=== PATIENT | male | born 1980 ===

== ENCOUNTER 2023-01-10 14:28 | Emergency (ER) | payer OTHER, SELFPAY ==
--- NOTE | ~2023-01-10 | US_ITS ---
EXAMINATION: US ABDOMEN LIMITED CLINICAL INFORMATION: Right upper quadrant pain. COMPARISON: None available. TECHNIQUE: Real-time imaging of the right upper quadrant abdominal viscera. FINDINGS: Per the ordering physician imaging of the gallbladder and common duct only Gallbladder wall is not thickened. No evidence for edema. There is echogenicity within consistent with sludge or echogenic bile. The common duct is 0.3 cm within normal limits. US/US abdomen limited IMPRESSION: Sludge and/or echogenic bile within the gallbladder. No evidence of gallbladder edema. The common duct is 3 mm
[2023-01-10 14:36] VITALS: BP 168/108; PULSE 67; RESP 18; TEMP 37.1; O2SAT 100; BMI 22.3
--- NOTE | 2023-01-10 14:37 | ED_ITS ---
HPI - General Adult General Chief complaint: Abdominal Pain Stated complaint: abd pain, vomiting Time Seen by Provider: 01/10/23 16:34 Source: patient Mode of arrival: ambulatory Limitations: no limitations History of Present Illness HPI narrative: 42 yold male presents with pmh of alcoholism ( cold turkey since may 2022) presents to the ED for 9 days of sharp/acid mid/epigastric abdominal pain for the past 9 days with decrease appetitte. Patient denies any chest pain, shortness of breath, symptoms, recent drinking, spicy food, or any recent trauma. patient denies any pmh surgical history or pancreatits. patient denies any drug use. Related Data Previous Rx's Medication Instructions Recorded famotidine 20 mg tablet (Pepcid) 20 mg PO BID 7 days #14 tabs 01/11/23 oxycodone 5 mg tablet 5 mg PO TID PRN pain 3 days #9 tabs 01/11/23 Allergies Allergy/AdvReac Type Severity Reaction Status Date / Time No Known Allergies Allergy Verified 01/10/23 14:35 Review of Systems Review of Systems: mid abdominal pain Yes all other systems are reviewed and are negative [facility] Social History Social History Advance Directives: No Advance Directives Information Provided: No Physical Exam ED Vital Signs: Vital Signs - 24 hr 01/10/23 14:36 01/10/23 19:19 01/10/23 21:17 Temperature 98.7 F Pulse Rate 67 64 70 Respiratory Rate 18 16 18 Blood Pressure 168/108 H 132/84 135/94 H Pulse Oximetry 100 97 99 Oxygen Delivery Method Room Air Room Air Room Air 01/10/23 21:32 Temperature Pulse Rate 66 Respiratory Rate 18 Blood Pressure 129/85 Pulse Oximetry 100 Oxygen Delivery Method Room Air BMI result Body Mass Index 22.3 Const General: cooperative, healthy appearing, comfortable, no acute distress, well developed, alert, awake and Physically active Orientation/consciousness: oriented to person, oriented to place, oriented to time and patient oriented x3 HENMT Head: Yes normal to inspection, Yes No palpable skull fracture present, Yes normocephalic, Yes atraumatic and No abrasion Eyes General: appearance normal, both eyes and all related structures Neck Neck: Yes normal visual inspection, Yes full ROM, Yes no lymphadenopathy, Yes no meningeal signs, Yes trachea midline, Yes supple, No anterior neck swelling and No tender Chest Chest palpation & inspection: normal inspection of the chest and normal palpation of entire chest wall Resp Effort & Inspection: normal respiratory effort and able to speak in complete sentences Auscultation: clear to auscultation bilaterally Cardio Jugular venous distension: no JVD Heart sounds: S1 normal heart sound present and S2 normal heart sound present GI Inspection: Yes normal to inspection and No abdominal wall ecchymosis Palpation (GI): Tenderness to palpation present (GI) (mid abdominal pain) in the epigastrum; not in the LLQ, not in the RLQ, not in the LUQ, not in the RUQ, not at McBurney's point, not periumbilically, not suprapubicly, Ireland's sign negative, obturator sign negative, psoas sign negative, with no rebound tenderness, Rovsing's sign negative and no other, no guarding and not rigid General: No CVA tenderness and Yes no CVA tenderness Back/Spine/Pelvis Back: no CVA tenderness, No CVA tenderness and No back tenderness Skin General skin exam: no rashes or lesions noted and elasticity normal Neuro General: oriented to person, oriented to place, oriented to time, patient oriented x3, gait normal, tone normal, moves all extremities, Normal light touch and pain sensation, no meningeal signs, no focal motor deficits, CN's II-XI intact bilaterally and normal sensation to monofilament Extrem General: Yes normal to inspection and Yes full ROM Psych Appearance: grossly normal, well kempt and not disheveled Course Course Course Narrative: 42 year old male p;resents for evaluation of upper abdominal pain, burning in nature. Denies any history of abdominal surgeries. Will check labs including liver enzymes and lipase. Reevaluation(s) Reevaluation #1: patient tender in mid/epigastric exam. Due to age will add EKG and troponin and GI cocktail. Will do imaging. Time: 17:05 Medications Administered Discontinued Medications Generic Name Dose Route Start Last Admin Trade Name Nory PRN Reason Stop Dose Admin Al Hydroxide/Mg Hydroxide 30 ml 01/10/23 16:56 01/10/23 17:23 Magnesium Hydrox/Alum Hydrox 30 Ml Oral.Susp PO 01/10/23 16:57 30 ml ONCE ONE Administration Belladonna Alkaloids/Phenobarbital 10 ml 01/10/23 16:56 01/10/23 17:23 Phenobarb/Hyoscy/Atropine/Scop 10 Ml Elixir PO 01/10/23 16:57 10 ml ONCE ONE Administration Famotidine 20 mg 01/10/23 16:56 01/10/23 17:23 Famotidine/Pf 20 Mg/2 Ml Vial IVPUSH 01/10/23 16:57 20 mg ONCE ONE Administration Sodium Chloride 1,000 mls @ 999 mls/hr 01/10/23 16:56 01/10/23 18:58 Ns IV 01/10/23 17:56 Infused .Q1H1M STA Infusion Lidocaine HCl 15 ml 01/10/23 16:56 01/10/23 17:23 Lidocaine Hcl Viscous 2 % 15 Ml Solution MUCOUS MEM 01/10/23 16:57 15 ml ONCE ONE Administration Morphine Sulfate 2 mg 01/10/23 21:22 01/10/23 21:29 Morphine Sulfate 2 Mg/Ml Cartridge IVPUSH 01/10/23 21:23 2 mg ONCE ONE Administration Protocol Medical Decision Making Medical Decision Making MDM Narrative: 42 yold male presents with epigastric/mid abdominal pain for 9 days with decrease appettie. patient states no fever, chills, lower abdominal pain,or weightloss. Labs normal. Cardiac evaliation normal. Patient givne GI cocktail. ULtrasound shows sludge in gallblader, biliary colic. No need for surgical con stulation. patietn to be discharge. Differential Diagnosis Differential Diagnoses: The differential diagnosis associated with the presenta tion includes (pancreatitis, cholecystitsis, biliary colic, mI, GERD, appendicitis, ) Admission/Observation Consideration of admission/observation: Escalation of care including admission/observation considered Lab Data [facility] Lab Attestation statement: I reviewed the patient's lab results. 01/10/23 14:52 01/10/23 14:52 Labs: Lab Results 01/10/23 01/10/23 01/10/23 Range/Units 14:52 14:52 17:18 WBC 11.7 H (4.8-10.8) X10*3/uL RBC 5.14 (4.60-5.80) X10*6/uL Hgb 15.9 (14.0-18.0) g/dl Hct 47.0 (42.0-52.0) % MCV 91.4 (80.0-98.0) fL MCH 30.9 (27.0-33.0) pg MCHC 33.8 (31.0-36.0) g/dl RDW 12.2 (11.0-16.0) % Plt Count 338 (160-400) X10*3/uL MPV 10.0 (9.4-12.4) fL Immature Gran % (Auto) 0.3 (0.0-0.4) % Neut % (Auto) 78.5 H (45-73) % Lymph % (Auto) 15.8 L (20-40) % [place] % (Auto) 4.7 (2-11) % Eos % (Auto) 0.1 (0-4) % Baso % (Auto) 0.6 (0-2) % Lymph # (Auto) 1.9 (1.2-4.9) X10*3/uL [place] # (Auto) 0.6 (0.1-1.2) X10*3/uL Eos # (Auto) 0.0 (0.0-0.4) X10*3/uL Baso # (Auto) 0.1 (0.0-0.2) X10*3/uL Abs Immat Gran (auto) 0.03 (0.00-0.03) X10*3/uL Absolute Neuts (auto) 9.2 H (2.0-8.3) x10*3/uL Absolute Nucleated RBC 0.000 (0.0-0.012) X10*3/uL Nucleated RBC % (auto) 0.0 (0.0-0.2) /100WBC PT 11.7 (10.0-13.1) SEC INR 1.0 (0.9-1.1) APTT 28.7 (26.0-36.4) SEC Sodium 139 (135-145) mmol/L Potassium 4.9 (3.3-5.1) mmol/L Chloride 104 (96-108) mmol/L Carbon Dioxide 27 (22-29) mmol/L Anion Gap 13 (12-20) BUN 8 L (9-16) mg/dL Creatinine 0.97 (0.5-1.4) mg/dL Estim Creat Clear Calc 96.7 Estimated GFR > 60 Random Glucose 110 (60-115) mg/dL Calcium 10.1 (8.4-10.2) mg/dL Total Bilirubin 2.1 H (0.0-1.0) mg/dL AST 18 (5-37) U/L ALT 19 (0-40) U/L Alkaline Phosphatase 78 (39-117) U/L Troponin I High Sens (<3.5-35.0) ng/L Total Protein 7.3 (6.5-8.0) g/dL Albumin 4.5 (3.5-5.0) g/dL Lipase 22 (8-78) U/L 01/10/23 Range/Units 17:18 WBC (4.8-10.8) X10*3/uL RBC (4.60-5.80) X10*6/uL Hgb (14.0-18.0) g/dl Hct (42.0-52.0) % MCV (80.0-98.0) fL MCH (27.0-33.0) pg MCHC (31.0-36.0) g/dl RDW (11.0-16.0) % Plt Count (160-400) X10*3/uL MPV (9.4-12.4) fL Immature Gran % (Auto) (0.0-0.4) % Neut % (Auto) (45-73) % Lymph % (Auto) (20-40) % [place] % (Auto) (2-11) % Eos % (Auto) (0-4) % Baso % (Auto) (0-2) % Lymph # (Auto) (1.2-4.9) X10*3/uL [place] # (Auto) (0.1-1.2) X10*3/uL Eos # (Auto) (0.0-0.4) X10*3/uL Baso # (Auto) (0.0-0.2) X10*3/uL Abs Immat Gran (auto) (0.00-0.03) X10*3/uL Absolute Neuts (auto) (2.0-8.3) x10*3/uL Absolute Nucleated RBC (0.0-0.012) X10*3/uL Nucleated RBC % (auto) (0.0-0.2) /100WBC PT (10.0-13.1) SEC INR (0.9-1.1) APTT (26.0-36.4) SEC Sodium (135-145) mmol/L Potassium (3.3-5.1) mmol/L Chloride (96-108) mmol/L Carbon Dioxide (22-29) mmol/L Anion Gap (12-20) BUN (9-16) mg/dL Creatinine (0.5-1.4) mg/dL Estim Creat Clear Calc Estimated GFR Random Glucose (60-115) mg/dL Calcium (8.4-10.2) mg/dL Total Bilirubin (0.0-1.0) mg/dL AST (5-37) U/L ALT (0-40) U/L Alkaline Phosphatase (39-117) U/L Troponin I High Sens < 2.7 (<3.5-35.0) ng/L Total Protein (6.5-8.0) g/dL Albumin (3.5-5.0) g/dL Lipase (8-78) U/L Independent Interpretation I performed an independent interpretation of an: Ultrasound Radiology Impression Discussion of test interpretation with radiology: I have reviewed the radiologist's reading. Prescription Management I considered prescription management with: Pain Medication and Other (pepcid) Discharge Plan Discharge Clinical Impression: Biliary colic, Gastroesophageal reflux disease, Sludge in gallbladder Patient Disposition: Home, Self-Care Instructions: Biliary Colic (ED), Gastroesophageal Reflux Disease (ED) Additional Instructions: REturn to the ED for any concerning symptoms. Prescriptions: New famotidine [Pepcid] 20 mg tablet 20 mg PO BID 7 Days Qty: 14 0RF oxycodone 5 mg tablet 5 mg PO TID PRN (Reason: pain) 3 Days Qty: 9 0RF Rx Instructions: Partial Fill upon patient request. Referrals: [facility] [Provider Group] (Sludge in gall bladder) [facility] [Provider Group] (sludge in gall bladder) Stand Alone Forms: Work/School Release Interventions: ED Discharge Assessment Last Done: 01/10/23 21:40 Discharge Date/Time: 01/10/23 21:40 Print Language: Samoan
[2023-01-10 14:56] LABS: MANUAL DIFF FLAG NO
[2023-01-10 14:58] LABS: Basophils Absolute Auto 0.1 X10*3/uL (0.0-0.2); Basophils Percent Auto 0.6 % (0-2); Eosinophils Percent Auto 0.1 % (0-4); Hemoglobin 15.9 g/dl (14.0-18.0); Imm Gran Abs Auto 0.03 X10*3/uL (0.00-0.03); Imm Gran Pct Auto 0.3 % (0.0-0.4); Lymphocytes Absolute Auto 1.9 X10*3/uL (1.2-4.9); Lymphocytes Percent Auto 15.8 % (20-40); Mean Corpuscular HGB Conc 33.8 g/dl (31.0-36.0); Mean Corpuscular Hemoglobin 30.9 pg (27.0-33.0); Mean Corpuscular Volume 91.4 fL (80.0-98.0); Monocytes Absolute Auto 0.6 X10*3/uL (0.1-1.2); Monocytes Percent Auto 4.7 % (2-11); Neutrophils Absolute Auto 9.2 x10*3/uL (2.0-8.3); Neutrophils Percent Auto 78.5 % (45-73); Platelet Count 338 X10*3/uL (160-400); Red Blood Count 5.14 X10*6/uL (4.60-5.80); Red Cell Distribution Width 12.2 % (11.0-16.0); White Blood Count 11.7 X10*3/uL (4.8-10.8)
[2023-01-10 15:16] LABS: Alanine Aminotransferase 19 U/L (0-40); Albumin Level 4.5 g/dL (3.5-5.0); Alkaline Phosphatase 78 U/L (39-117); Anion Gap 13 (12-20); Aspartate Amino Transferase 18 U/L (5-37); Bilirubin Total 2.1 mg/dL (0.0-1.0); Blood Urea Nitrogen 8 mg/dL (9-16); Calcium 10.1 mg/dL (8.4-10.2); Carbon Dioxide 27 mmol/L (22-29); Chloride 104 mmol/L (96-108); Creatinine Clr Calc Pharmacy 96.7; Estimated Glomerular Filt Rate > 60; Glucose Random 110 mg/dL (60-115); Lipase 22 U/L (8-78); Potassium 4.9 mmol/L (3.3-5.1); Sodium 139 mmol/L (135-145); Total Protein 7.3 g/dL (6.5-8.0)
--- NOTE | 2023-01-10 16:56 | ECG_ITS ---
Test Reason : ABDOMINAL PAIN Blood Pressure : / mmHG Vent. Rate : 064 BPM Atrial Rate : 064 BPM P-R Int : 112 ms QRS Dur : 072 ms QT Int : 424 ms P-R-T Axes : 055 080 070 degrees QTc Int : 437 ms Normal sinus rhythm Normal ECG No previous ECGs available Referred By: Ulisses Harris Electronically Signed By:Dakota Stanton
[2023-01-10] MEDS: Lidocaine HCl Viscous 2 % 15 ML SOLUTION MUCOUS MEM (17:23)
[2023-01-10] MEDS: Famotidine/PF 20 MG/2 ML VIAL IVPUSH (17:23)
[2023-01-10] MEDS: Magnesium Hydrox/Alum Hydrox 30 ML ORAL.SUSP PO (17:23)
[2023-01-10] MEDS: PHENobarb/Hyoscy/Atropine/Scop 10 ML ELIXIR PO (17:23)
[2023-01-10] MEDS: 0.9 % Sodium Chloride 1,000 ML 999 ML IV (17:24)
[2023-01-10 17:30] LABS: Prothrombin Time 11.7 SEC (10.0-13.1)
[2023-01-10 17:33] LABS: Partial Thromboplastin Time 28.7 SEC (26.0-36.4)
[2023-01-10 17:54] LABS: Troponin-I High Sensitivity < 2.7 ng/L (<3.5-35.0)
[2023-01-10 19:19] VITALS: BP 132/84; PULSE 64; RESP 16; O2SAT 97
[2023-01-10 21:17] VITALS: BP 135/94; PULSE 70; RESP 18; O2SAT 99
[2023-01-10] MEDS: Morphine Sulfate 2 MG/ML CARTRIDGE IVPUSH (21:29)
[2023-01-10 21:32] VITALS: BP 129/85; PULSE 66; RESP 18; O2SAT 100
== END 2023-01-10 21:40 | disposition home or self-care (01) ==
PROVIDERS: Physician Assistant; Emergency Provider Internal Medicine
DX: K80.50 Calculus of bile duct without cholangitis or cholecystitis without obstruction (principal); K21.9 Gastro-esophageal reflux disease without esophagitis; K82.8 Other specified diseases of gallbladder; R10.13 Epigastric pain
CPT/HCPCS: 36415; 76705; 80053; 83690; 84484; 85025; 85610; 85730; 93005; 96361; 96374; 96375; 99284; J2270

== ENCOUNTER 2023-04-26 08:35 | Outpatient (AMB) | payer OTHER, SELFPAY ==
--- NOTE | 2023-04-26 08:44 | A.OFFPC_ITS ---
Vital Signs 04/26/23 08:46 Height 5 ft 7 in Weight 155 lb 4 oz BMI 24.3 BP 110/64 Blood Pressure Location Lt brachial Position Sitting Pulse 84 Pulse Source Pulse Oximeter Pulse Oximetry (%) 97 Oxygen Delivery Method Room Air Intake Visit Reasons: New patient-Gastric issues Intake Note: Patient is a new patient here to establish care for GI issues, history of kidney stone, possible inguinal hernia?. Transferring care from Unknown. Medical records have not been requested and have not received. Community Health Advocate Required: No Results Technician: Present Accompanied by: Spouse Allergies No Known Allergies Allergy (Verified 04/26/23 09:05) Medication List - Last Reconciled 04/26/23 by JENNIFER Farrell No Known Home Meds Tobacco use date assessed: 04/26/23 Dental Screening Dental Screen Date: 04/26/23 Did you have a dental visit in the last 12 months?: No Did you have a dental problem in the last 6 months where you did not have access to dental care?: No Was dental information given to patient?: No HPI HPI Comments History of Present Illness Details 42-year-old male [facility]. Denies significant past medical history. Review of the notes patient was seen in the emergency room in January for abdominal pain abdominal ultrasound showed a gallbladder sludge no surgical consult was required at that time patient was d/c on famotidine. Patient reports that he'll get mid epigastric pain that comes and goes and he is unable to eat at that time.Patient states when it occurs he is not able to eat for days Last happened 1 month ago. Patient currently denies any abdominal pain at this time. Denies any dyspepsia, nausea vomiting. PHQ-9 and plamira 7 positive. Denies SI/HI. [facility] is requesting referral for counseling [facility] Medical History (Updated 04/26/23 @ 09:32 by JENNIFER Farrell) Biliary colic Surgical History No pertinent past surgical history Family History (Updated 04/26/23 @ 09:07 by JENNIFER Farrell) Mother MVA (motor vehicle accident) Father Gastric cancer Alcohol abuse Other Mental health disorder Social History (Updated 04/26/23 @ 09:08 by JENNIFER Farrell) Housing: Apartment Alcohol intake: former Year quit: 2021 Patient Tobacco Use Status: Current everyday Tobacco user Tobacco use type: Cigarette Cigarette Packs Per Day: 0.75 Cigarettes Per Day: 15 e-Cigarette/Vaping Use: Never Used Second Hand Smoke Exposure: Yes Substance Use Type: Marijuana service: No Current occupational status: employed Current occupation: [employer] Cognitive needs: No Hearing needs: No Vision needs: No Questionnaire PHQ-9 Over the last 2 weeks, how often have you been bothered by any of the following problems? 1. Little interest or pleasure in doing things: several days 2. Feeling down, depressed, or hopeless: several days 3. Trouble falling or staying asleep, or sleeping too much: nearly every day 4. Feeling tired or having little energy: several days 5. Poor appetite or overeating: nearly every day 6. Feeling bad about yourself - or that you are a failure or have let yourself or your family down: not at all 7. Trouble concentrating on things, such as reading the newspaper or watching television: not at all 8. Moving or speaking so slowly that other people could have noticed. Or the opposite - being so fidgety or restless that you have been moving around a lot more than usual: not at all 9. Thoughts that you would be better off or of hurting yourself in some way: not at all Total score: 9 Depression Screening Interpretation: Positive 86803 - PHQ-9 Billing: Yes Source: Developed by Drs. Rajan Mcintyre, Kesha Conner, Joselo Medina and colleagues, with an educational brittany from [employer]. Thrive Questionnaire Date Thrive assessed: 04/26/23 I am a: Patient What is your living situation today?: I have a steady place to live Within the past 12 months, did the food you bought not last and you didn't have the money to get more?: Never true Within the past 12 months, did you worry whether your food would run out before you got money to buy more?: Never true Do you have trouble paying for medicines?: No Do you have trouble getting transportation to medical appointments?: No Do you have trouble paying your heating and electricity bill?: No Do you have trouble taking care of your child, family member or friend?: No Do you have trouble with day-to-day activities such as bathing, preparing meals, shopping, managing finances, etc.?: No Are you currently unemployed and looking for a job?: No Are you interested in more education?: No Currently or been in a relationship where the following occur: no concerns reported AUDIT C Alcohol Use Questionnaire (AUDIT-C) 1. How often do you have a drink containing alcohol?: Never Total Score: 0 PALMIRA-7 AMB Questionnaire PALMIRA-7 Date PALMIRA - 7 assessed: 04/26/23 Feeling nervous, anxious, or on edge: 3 = Nearly every day Not being able to stop or control worryin = Several days Worrying too much about different things: 1 = Several days Trouble relaxin = Nearly every day Being so restless that it is hard to sit still: 3 = Nearly every day Becoming easily annoyed or irritable: 1 = Several days Feeling afraid as if something awful might happen: 1 = Several days Total PALMIRA-7 score (0-4 normal; 5-9 mild; 10-14 moderate; 15-21 severe): 13 Source: Developed by Drs. Rajan Mcintyre, Kesha Conner, Joselo Medina and colleagues, with an educational brittany from [employer]. PALMIRA-7 Assessment Billing PALMIRA-7 Assessment Tool: PALMIRA-7 Assessment 56326 Review of Systems Const Denies chills, Denies fatigue, Denies fever(s) and Denies poor appetite Eyes Denies no additional complaints ENT Reports Normal hearing present Card Denies chest pain, Denies syncope, Denies rapid heart rate and Denies dyspnea Resp Denies cough and Denies dyspnea GI Denies change in stool character, Denies constipation, Denies diarrhea, Denies nausea and Denies vomiting Denies dysuria, Denies urinary frequency and Denies urinary urgency Neuro Reports Normal hearing present, Denies confusion and Denies syncope Psych Denies confusion Endo Denies fatigue Physical exam (Primary Care) Vital Signs: Last Vital Signs Pulse 84 04/26/23 08:46 BP 110/64 04/26/23 08:46 Pulse Ox 97 04/26/23 08:46 Oxygen Delivery Method Room Air 04/26/23 08:46 BMI result Body Mass Index 24.3 Tobacco/Smoking Status: Tobacco use Status Tobacco use date assessed 04/26/23 04/26/23 09:00 Patient Tobacco Use Status Current everyday Tobacco 04/26/23 09:08 Tobacco use type Cigarette 04/26/23 09:08 e-Cigarette/Vaping Use Never Used 04/26/23 09:08 PHQ-9: PHQ-9 Score PHQ-9: Total score 9 04/26/23 09:09 Depression Screening Interpretation: Positive Thrive Assessment: Date of Thrive Assessment Date Thrive assessed 04/26/23 04/26/23 09:00 Currently or been in a relationship where the following occur: no concerns reported Const General: No confusion Orientation/consciousness: No confusion HENMT Head: Yes normocephalic and Yes atraumatic Eyes Conjunctivae: conjunctivae normal Chest Chest palpation & inspection: normal inspection of the chest Resp Effort & Inspection: normal respiratory effort Auscultation: clear to auscultation bilaterally, no crackles, no rhonchi and no wheezes Cardio Rate: regular rate Rhythm: regular rhythm Heart sounds: S1 normal heart sound present and S2 normal heart sound present GI Inspection: Yes normal to inspection Palpation (GI): Soft to palpation, nontender and No hepatosplenomegaly present Auscultation: normoactive bowel sounds Neuro General: No confusion Cranial nerves: Yes Normal hearing present Extrem General: No edema Assessment and Plan Assessment & Plan (1) Biliary colic: Code(s): K80.50 - Calculus of bile duct without cholangitis or cholecystitis without obstruction Plan: Referral entered to general surgery for further evaluation. (2) Depression: Code(s): F32.A - Depression, unspecified Plan: Referral entered counseling. (3) Anxiety: Code(s): F41.9 - Anxiety disorder, unspecified Plan: Referral entered counseling. Plan Follow-up in 3 months for physical exam. Orders: Orders Complete Blood Count Auto Diff Today Z13.0 - Encounter for screening for diseases of the blood and blood-forming organs and certain disorders involving the immune mechanism TSH reflex Free T4 Today Z13.29 - Encounter for screening for other suspected endocrine disorder Amylase Today K80.50 - Calculus of bile duct without cholangitis or cholecystitis without obstruction Comprehensive Met. Panel Today K80.50 - Calculus of bile duct without cholangit is or cholecystitis without obstruction Lipid Panel Today Z13.220 - Encounter for screening for lipoid disorders Lipase Today K80.50 - Calculus of bile duct without cholangitis or cholecystitis without obstruction Referrals Counseling Referral F32.A - Depression, unspecified, F41.9 - Anxiety disorder, unspecified General Surgery Referral K80.50 - Calculus of bile duct without cholangitis or cholecystitis without obstruction Coding Level of Care Code New Pt Level 3 (76614) Diagnoses Biliary colic K80.50 Depression F32.A Anxiety F41.9 Additional Codes PALMIRA-7 Assessment Billing - PALMIRA-7 Assessment Tool: PALMIRA-7 Assessment 33181 ([id number])
[2023-04-26 08:46] VITALS: BP 110/64; PULSE 84; O2SAT 97; BMI 24.3
== END 2023-04-26 09:23 | disposition home or self-care (01) ==
PROVIDERS: PCP Nurse Practitioner Family; Visit Provider Nurse Practitioner Family
DX: K80.50 Calculus of bile duct without cholangitis or cholecystitis without obstruction (principal); F32.A Depression, unspecified; F41.9 Anxiety disorder, unspecified
CPT/HCPCS: 99203

== ENCOUNTER 2023-05-09 14:24 | Outpatient (AMB) | payer OTHER, SELFPAY ==
--- NOTE | 2023-05-09 14:47 | A.OFFVIS_ITS ---
Intake Vital Signs 05/09/23 14:51 Height 5 ft 7 in Weight 156 lb BMI 24.4 BP 119/67 Blood Pressure Location Rt brachial Position Standing Pulse 70 Intake Visit Reasons: Calculus of bile Intake Note: Patient referred for calculus of bile. Has been experiencing pain on and off for 8-9m. Last episode 1 month ago. C/o severe pain, vomiting, diarrhea. reports vomiting even water. Currently taking ibuprofen as needed. 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 He says that he has had this for about 8 months now. He says that this is normally on the left upper quadrant but would radiate to the periumbilical area. He says that sometimes it would last for 5 days. He has had poor oral intake as well periodically. He says that he would feel nauseous and would have vomiting even with intake of water frequently. His says that he may have lost almost 30 lb in the past year because of this He went to the ER last January, and had an ultrasound showing sludge or echogenic bile without stones. [facility] Medical History Chronic abdominal pain Biliary colic Surgical History No pertinent past surgical history Family History Mother MVA (motor vehicle accident) Father Gastric cancer Alcohol abuse Other Mental health disorder Social History Housing: Apartment Alcohol intake: former Year quit: 2022 Patient Tobacco Use Status: Current everyday Tobacco user Tobacco use type: Cigarette Cigarette Packs Per Day: 0.75 Cigarettes Per Day: 15 e-Cigarette/Vaping Use: Never Used Second Hand Smoke Exposure: Yes Substance Use Type: Marijuana service: No Current occupational status: employed 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 Cognitive needs: No Hearing needs: No Vision needs: No Review of Systems Const Denies chills, Denies fever(s) and Reports weight loss Card Denies chest pain, Denies dyspnea and Denies dyspnea on exertion Resp Denies cough, Denies dyspnea and Denies dyspnea on exertion GI Denies hematochezia, Denies change in bowel habits, Reports nausea and Reports vomiting Denies hematuria and Denies difficulty urinating Musc Denies back pain and Denies limited range of motion Neuro Denies focal weakness and Denies convulsions Psych Denies depression and Denies mood swings Physical Exam Vital Signs: Last Vital Signs Pulse 70 05/09/23 14:51 BP 119/67 05/09/23 14:51 BMI result Body Mass Index 24.4 Const General: comfortable and no acute distress Orientation/consciousness: patient oriented x3 Neck Neck: Yes no lymphadenopathy Resp Auscultation: clear to auscultation bilaterally Cardio Rhythm: regular rhythm GI Other: No tenderness right now, no Ireland's sign Palpation (GI): Soft to palpation, nontender and no guarding Neuro General: patient oriented x3 Assessment & Plan Assessment & Plan (1) Chronic abdominal pain: Code(s): R10.9 - Unspecified abdominal pain; G89.29 - Other chronic pain Plan: He has had chronic abdominal pain along with nausea or vomiting for almost a year now. He describes this mostly on the left upper quadrant and radiating to the periumbilical area. He had an ultrasound last January showing sludge and echogenic bile. His symptoms are not typical for a gallbladder etiology I am going to schedule him for a CT scan of the abdomen pelvis. He may need to have an endoscopy down the line. I will see him back in the office to discuss the CT scan findings. Orders: Orders CT abdomen pelvis w IV con 05/09/23 R10.9 - Unspecified abdominal pain, G89.29 - Other chronic pain Coding Level of Care Code New Pt Level 3 (91200) Diagnoses Chronic abdominal pain R10.9; G89.29
[2023-05-09 14:51] VITALS: BP 119/67; PULSE 70; BMI 24.4
== END 2023-05-09 15:10 | disposition home or self-care (01) ==
PROVIDERS: PCP Nurse Practitioner Family; Referring Provider Nurse Practitioner Family; Visit Provider Surgery
DX: R10.9 Unspecified abdominal pain (principal); G89.29 Other chronic pain
CPT/HCPCS: 99203

== ENCOUNTER → 2023-05-09 14:24 | Outpatient (BNVA) | payer OTHER, SELFPAY | PROVIDERS: PCP Nurse Practitioner Family; Referring Provider Nurse Practitioner Family; Visit Provider Surgery ==

== ENCOUNTER 2023-06-06 07:58 | Outpatient (REF) | payer OTHER, SELFPAY ==
[2023-06-06 08:14] LABS: MANUAL DIFF FLAG NO
[2023-06-06 08:49] LABS: Basophils Absolute Auto 0.1 X10*3/uL (0.0-0.2); Basophils Percent Auto 0.9 % (0-2); Eosinophils Absolute Auto 0.2 X10*3/uL (0.0-0.4); Eosinophils Percent Auto 2.4 % (0-4); Hemoglobin 15.8 g/dl (14.0-18.0); Imm Gran Abs Auto 0.03 X10*3/uL (0.00-0.03); Imm Gran Pct Auto 0.3 % (0.0-0.4); Lymphocytes Absolute Auto 2.5 X10*3/uL (1.2-4.9); Mean Corpuscular HGB Conc 33.6 g/dl (31.0-36.0); Mean Corpuscular Hemoglobin 30.3 pg (27.0-33.0); Mean Corpuscular Volume 90.2 fL (80.0-98.0); Monocytes Absolute Auto 0.5 X10*3/uL (0.1-1.2); Monocytes Percent Auto 5.4 % (2-11); Platelet Count 324 X10*3/uL (160-400); Red Blood Count 5.21 X10*6/uL (4.60-5.80); Red Cell Distribution Width 13.2 % (11.0-16.0); White Blood Count 9.4 X10*3/uL (4.8-10.8)
[2023-06-06 09:30] LABS: Alanine Aminotransferase 29 U/L (0-40); Albumin Level 4.5 g/dL (3.5-5.0); Alkaline Phosphatase 68 U/L (39-117); Amylase 107 U/L (28-100); Anion Gap 12 (12-20); Aspartate Amino Transferase 23 U/L (5-37); Bilirubin Total 1.9 mg/dL (0.0-1.0); Blood Urea Nitrogen 13 mg/dL (9-16); Calcium 9.7 mg/dL (8.4-10.2); Carbon Dioxide 25 mmol/L (22-29); Chloride 107 mmol/L (96-108); Cholesterol 228 mg/dL (<200); Estimated Glomerular Filt Rate > 60; Glucose Random 94 mg/dL (60-115); HDL Cholesterol 50 mg/dL (>40); LDL Cholesterol Calculated 162 mg/dL (<100); Lipase 17 U/L (8-78); Potassium 4.4 mmol/L (3.3-5.1); Sodium 140 mmol/L (135-145); Total Protein 7.4 g/dL (6.5-8.0); Triglycerides 81 mg/dL (<150)
== END 2023-06-06 07:59 | disposition home or self-care (01) ==
LOC: HO.LAB 07:58
PROVIDERS: PCP Nurse Practitioner Family; Visit Provider Nurse Practitioner Family
DX: Z13.220 Encounter for screening for lipoid disorders (principal); Z13.0 Encounter for screening for diseases of the blood and blood-forming organs and certain disorders involving the immune mechanism; Z13.29 Encounter for screening for other suspected endocrine disorder; K80.50 Calculus of bile duct without cholangitis or cholecystitis without obstruction
CPT/HCPCS: 36415; 80053; 80061; 82150; 83690; 84443; 85025

== ENCOUNTER 2023-06-13 07:30 | Outpatient (REF) | payer OTHER, SELFPAY ==
--- NOTE | ~2023-06-13 | CT_ITS ---
EXAMINATION: CT ABDOMEN AND PELVIS WITH CONTRAST CLINICAL INFORMATION: Abdominal pain COMPARISON: None available. TECHNIQUE: Multidetector volumetric images were obtained from the superior aspect of the liver through the pubic symphysis following administration 85 mL of Omnipaque 350 intravenous contrast. Sagittal and coronal reformatted images were obtained on the technologist's workstation. Oral contrast: No This CT examination was performed using dose optimization techniques as appropriate, variously including the following: *Automated exposure control *Adjustment of mA and/or kV according to patient size (this includes techniques or standardized protocols for targeted exams where dose is matched to indication/reason for exam; i.e. extremities or head) *Use of iterative reconstruction technique DLP: 246 mGy-cm FINDINGS: STAIN WIPER: Nonobstructive bowel pattern. L4-L5 and L5-S1 disc disease. LUNG BASES: The visualized lung bases are unremarkable. Nonenlarged heart. No pericardial effusion. LIVER, GALLBLADDER, AND BILIARY TREE: The liver is normal in size, shape, and attenuation. No focal hepatic lesion or biliary ductal dilatation is present. The gallbladder is unremarkable with no evidence of radiopaque gallstones, gallbladder wall thickening, or obvious pericholecystic inflammatory changes. PANCREAS: Unremarkable. SPLEEN: Unremarkable. ADRENAL GLANDS: Unremarkable. KIDNEYS AND URETERS: The kidneys are normal in size, shape, and attenuation. No hydronephrosis, hydroureter, or calculi seen. No perinephric stranding. BLADDER: Decompressed with wall thickening. GASTROINTESTINAL TRACT: Decompressed stomach, fundal wall thickening would be difficult to exclude. Nonobstructive bowel pattern. Appendix not identified with certainty. No right lower quadrant inflammatory changes. Sigmoid colon is decompressed. Moderate fecal retention. ABDOMINAL WALL: Small fat filled umbilical hernia. LYMPH NODES: Normal. VASCULAR: Unremarkable. PELVIC VISCERA: Prominent prostate with calcifications. Trace pelvic free fluid. OSSEOUS STRUCTURES: L4-L5 and L5-S1 spurring, sclerosis and disc space narrowing. CT/CT abdomen pelvis w IV con IMPRESSION: Small amount of free pelvic fluid of indeterminate etiology and significance. No intra-abdominal or pelvic pathology recognized. Study limited by lack of oral contrast. Decompressed stomach, gastric wall thickening not excluded. Moderate fecal retention. Fleischner guidelines were followed.
[2023-06-13] MEDS: iohexoL 350 MG/ML 100 ML INFUS..BTL IV (08:10)
== END 2023-06-13 07:31 | disposition home or self-care (01) ==
LOC: HO.CT 07:30
PROVIDERS: PCP Nurse Practitioner Family; Visit Provider Surgery
DX: R10.9 Unspecified abdominal pain (principal); G89.29 Other chronic pain
CPT/HCPCS: 74177; Q9967

== ENCOUNTER 2023-06-20 13:53 | Outpatient (AMB) | payer OTHER, SELFPAY ==
--- NOTE | 2023-06-20 13:57 | A.OFFVIS_ITS ---
Intake Intake Visit Reasons: Chronic abd pain, CT results Intake Note: This patient presents for a follow-up assessment for Ct-Scan results. Patient c/o; reports no changes at this time. Continuing Education Instructor Required: Yes Continuing Education Instructor Language: Kitchen Bath Designer Name: Mina Information Interpreted: non-clinical & clinical Accompanied by: Self / Same As Patient Allergies No Known Allergies Allergy (Verified 06/20/23 14:14) Medication List - Last Reconciled 06/20/23 by Sai Lainez MD No Known Home Meds HPI Chronic abd pain, CT results HPI Details I had seen him last month the office because of vague complaints of abdominal pain. It appeared that this was on the left upper quadrant. He says that he has pain had actually resolved. He had no longer complains of pain but I had sent him for a CT scan and he is here to discuss the findings. [facility] Medical History Chronic abdominal pain Biliary colic Surgical History No pertinent past surgical history Family History Mother MVA (motor vehicle accident) Father Gastric cancer Alcohol abuse Other Mental health disorder Social History Housing: Apartment Alcohol intake: former Year quit: 2022 Patient Tobacco Use Status: Current everyday Tobacco user Tobacco use type: Cigarette Cigarette Packs Per Day: 0.75 Cigarettes Per Day: 15 e-Cigarette/Vaping Use: Never Used Second Hand Smoke Exposure: Yes Substance Use Type: Marijuana service: No Current occupational status: employed Current occupation: [employer] Cognitive needs: No Hearing needs: No Vision needs: No Review of Systems Const Denies chills and Denies fever(s) Card Denies chest pain, Denies dyspnea and Denies dyspnea on exertion Resp Denies cough, Denies dyspnea and Denies dyspnea on exertion GI Denies hematochezia and Denies change in bowel habits Denies hematuria and Denies difficulty urinating Musc Denies back pain and Denies limited range of motion Neuro Denies focal weakness and Denies convulsions Psych Denies depression and Denies mood swings Physical Exam Const General: comfortable and no acute distress Orientation/consciousness: patient oriented x3 Neck Neck: Yes no lymphadenopathy Resp Auscultation: clear to auscultation bilaterally Cardio Rhythm: regular rhythm GI Palpation (GI): Soft to palpation, nontender and no guarding Neuro General: patient oriented x3 Assessment & Plan Assessment & Plan (1) Chronic abdominal pain: Code(s): R10.9 - Unspecified abdominal pain; G89.29 - Other chronic pain Plan: His pain has resolved. I have reviewed his CAT scan. I do not see any difficult findings. There is some suggestion of constipation. There is no inflammatory process or any 2 more or obvious pathology I explained the findings to him. He did reiterate that his symptoms have resolved. He can follow up on a p.r.n. basis. Coding Level of Care Code Est Pt Level 3 (00674) Diagnoses Chronic abdominal pain R10.9; G89.29
== END 2023-06-20 14:42 | disposition home or self-care (01) ==
PROVIDERS: PCP Nurse Practitioner Family; Visit Provider Surgery
DX: R10.9 Unspecified abdominal pain (principal); G89.29 Other chronic pain
CPT/HCPCS: 99213

== ENCOUNTER → 2023-06-20 13:53 | Outpatient (BNVA) | payer OTHER, SELFPAY | PROVIDERS: PCP Nurse Practitioner Family; Visit Provider Surgery | DX: R10.9 Unspecified abdominal pain (principal); G89.29 Other chronic pain | CPT/HCPCS: 99212 ==

== ENCOUNTER 2023-08-09 13:32 | Outpatient (AMB) | payer OTHER, SELFPAY ==
--- NOTE | 2023-08-09 13:35 | MHC.PC.OV ---
Vital Signs 08/09/23 13:39 08/09/23 13:45 Height 5 ft 7 in Weight 156 lb 6 oz BMI 24.5 BP 88/60 L 100/64 Blood Pressure Location Lt brachial Lt brachial Position Sitting Sitting Pulse 88 Pulse Source Pulse Oximeter Pulse Oximetry (%) 97 Oxygen Delivery Method Room Air Intake Visit Reasons: PE Intake Note: Patient is here today for a transfer care from AO and PE. Request lab results from June 2023. Reservations Specialist Required: No Principal Hardware Architect: Present Accompanied by: Spouse Allergies No Known Allergies Allergy (Verified 08/09/23 13:38) Tobacco use date assessed: 08/09/23 Dental Screening Dental Screen Date: 08/09/23 Did you have a dental visit in the last 12 months?: No Did you have a dental problem in the last 6 months where you did not have access to dental care?: No Was dental information given to patient?: No HPI PE HPI Details hyperlip on diet PFSH Medical History Chronic abdominal pain Biliary colic Surgical History No pertinent past surgical history Family History Mother MVA (motor vehicle accident) Father Gastric cancer Alcohol abuse Other Mental health disorder Social History Housing: Apartment Alcohol intake: former Year quit: 2022 Patient Tobacco Use Status: Current everyday Tobacco user Tobacco use type: Cigarette Cigarette Packs Per Day: 0.5 Cigarettes Per Day: 10 e-Cigarette/Vaping Use: Never Used Second Hand Smoke Exposure: Yes Substance Use Type: Marijuana service: No Current occupational status: employed Current occupation: [employer] Cognitive needs: No Hearing needs: No Vision needs: No Questionnaire PHQ-9 Over the last 2 weeks, how often have you been bothered by any of the following problems? 1. Little interest or pleasure in doing things: not at all 2. Feeling down, depressed, or hopeless: not at all 3. Trouble falling or staying asleep, or sleeping too much: not at all 4. Feeling tired or having little energy: not at all 5. Poor appetite or overeating: not at all 6. Feeling bad about yourself - or that you are a failure or have let yourself or your family down: not at all 7. Trouble concentrating on things, such as reading the newspaper or watching television: not at all 8. Moving or speaking so slowly that other people could have noticed. Or the opposite - being so fidgety or restless that you have been moving around a lot more than usual: not at all 9. Thoughts that you would be better off or of hurting yourself in some way: not at all Total score: 0 Depression Screening Interpretation: Negative Depression Screening Done: Yes 97279 - PHQ-9 Billing: Yes Source: Developed by Drs. Rajan Mcintyre, Kesha Conner, Joselo Medina and colleagues, with an educational brittany from [employer]. Thrive Questionnaire Date Thrive assessed: 08/09/23 I am a: Patient What is your living situation today?: I have a steady place to live Within the past 12 months, did the food you bought not last and you didn't have the money to get more?: Never true Within the past 12 months, did you worry whether your food would run out before you got money to buy more?: Never true Do you have trouble paying for medicines?: No Do you have trouble getting transportation to medical appointments?: No Do you have trouble paying your heating and electricity bill?: No Do you have trouble taking care of your child, family member or friend?: No Do you have trouble with day-to-day activities such as bathing, preparing meals, shopping, managing finances, etc.?: No Are you currently unemployed and looking for a job?: No Are you interested in more education?: No Currently or been in a relationship where the following occur: no concerns reported AUDIT C Alcohol Use Questionnaire (AUDIT-C) 1. How often do you have a drink containing alcohol?: Never Total Score: 0 PALMIRA-7 AMB Questionnaire PALMIRA-7 Date PALMIRA - 7 assessed: 08/09/23 Feeling nervous, anxious, or on edge: 0 = Not at all Not being able to stop or control worryin = Not at all Worrying too much about different things: 0 = Not at all Trouble relaxin = Not at all Being so restless that it is hard to sit still: 0 = Not at all Becoming easily annoyed or irritable: 0 = Not at all Feeling afraid as if something awful might happen: 0 = Not at all Total PALMIRA-7 score (0-4 normal; 5-9 mild; 10-14 moderate; 15-21 severe): 0 Source: Developed by Drs. Rajan Mcintyre, Kesha Conner, Joselo Medina and colleagues, with an educational brittany from [employer]. PALMIRA-7 Assessment Billing PALMIRA-7 Assessment Tool: PALMIRA-7 Assessment 66187 Review of Systems Const Denies chills, Denies fatigue, Denies headache(s) and Denies weight loss Eyes Denies change in vision, Denies diplopia and Denies eye pain ENT Denies vertigo, Denies dizziness, Denies headache(s) and Denies nasal discharge Card Denies chest pain, Denies rapid heart rate and Denies dyspnea on exertion Resp Denies chest congestion, Denies cough, Denies pain with cough and Denies dyspnea on exertion GI Denies abdominal pain, Denies hematochezia and Denies change in bowel habits Musc Denies myalgias, Denies arthralgias and Denies joint swelling Skin/Breast Denies lesions and Denies unusual bruising Neuro Denies vertigo, Denies dizziness, Denies headache(s) and Denies focal weakness Endo Denies fatigue Physical exam (Primary Care) Vital Signs: Last Vital Signs Pulse 88 08/09/23 13:39 BP 100/64 08/09/23 13:45 Pulse Ox 97 08/09/23 13:39 Oxygen Delivery Method Room Air 08/09/23 13:39 BMI result Body Mass Index 24.5 Tobacco/Smoking Status: Tobacco use Status Tobacco use date assessed 08/09/23 08/09/23 13:41 Patient Tobacco Use Status Current everyday Tobacco 08/09/23 13:35 Tobacco use type Cigarette 08/09/23 13:35 e-Cigarette/Vaping Use Never Used 08/09/23 13:35 PHQ-9: PHQ-9 Score PHQ-9: Total score 0 08/09/23 13:41 Depression Screening Interpretation: Negative Thrive Assessment: Date of Thrive Assessment Date Thrive assessed 08/09/23 08/09/23 13:41 Currently or been in a relationship where the following occur: no concerns reported Const General: cooperative, healthy appearing and no acute distress Orientation/consciousness: oriented to person, oriented to place and oriented to time HENMT Head: Yes normal to inspection, Yes normocephalic and Yes atraumatic Mouth: Normal oral and palatal mucosa present and tongue normal Throat: Yes posterior oropharynx normal and Yes uvula midline Eyes General: appearance normal, both eyes and all related structures Neck Neck: Yes normal visual inspection, Yes full ROM and Yes no lymphadenopathy Thyroid: Thyroid normal Carotids: normal carotid upstroke Chest Chest palpation & inspection: normal inspection of the chest Resp Effort & Inspection: normal respiratory effort and able to speak in complete sentences Auscultation: clear to auscultation bilaterally Cardio Jugular venous distension: no JVD Palpation: normal PMI Rate: regular rate Rhythm: regular rhythm Heart sounds: S1 normal heart sound present and S2 normal heart sound present GI Inspection: Yes normal to inspection Palpation (GI): Soft to palpation and No hepatosplenomegaly present Auscultation: normal bowel sounds General: Yes no CVA tenderness Back/Spine/Pelvis Back: no CVA tenderness Skin General skin exam: no rashes or lesions noted Neuro General: oriented to person, oriented to place and oriented to time Extrem General: Yes normal to inspection and Yes full ROM Assessment and Plan Assessment & Plan (1) Physical exam: Code(s): Z00.00 - Encounter for general adult medical examination without abnormal findings Plan: stable; colon cancer screening (2) Hypercholesteremia: Code(s): E78.00 - Pure hypercholesterolemia, unspecified Plan: diet Orders: Orders Lipid Panel Today E78.5 - Hyperlipidemia, unspecified Referrals Gastroenterology Referral Z12.11 - Encounter for screening for malignant neoplasm of colon Coding Level of Care Code Est Pt Prev Care 40-64y(39255) Diagnoses Physical exam Z00.00 Hypercholesteremia E78.00 Additional Codes PALMIRA-7 Assessment Billing - PALMIRA-7 Assessment Tool: PALMIRA-7 Assessment 98503 ([id number])
[2023-08-09 13:39] VITALS: BP 88/60; PULSE 88; O2SAT 97; BMI 24.5
[2023-08-09 13:45] VITALS: BP 100/64
== END 2023-08-09 14:39 | disposition home or self-care (01) ==
PROVIDERS: PCP Nurse Practitioner Family; Visit Provider Internal Medicine
DX: Z00.00 Encounter for general adult medical examination without abnormal findings (principal); E78.00 Pure hypercholesterolemia, unspecified
CPT/HCPCS: 99396

== ENCOUNTER 2024-01-31 09:44 | Outpatient (AMB) | payer OTHER, SELFPAY ==
--- NOTE | 2024-01-31 09:47 | A.OFFPC_ITS ---
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 Tee Intake Note: Pt is here to establish care w/ new PCP Allergies No Known Allergies Allergy (Verified 01/31/24 10:08) Medication List - Last Reconciled 01/31/24 by JENNIFER Bourne No Known Home Meds Tobacco use date assessed: 01/31/24 Dental Screening Dental Screen Date: 01/31/24 HPI HPI Comments History of Present Illness Details Patient is a 43-year-old male who I am meeting for the 1st time. Patient has upcoming scheduled for colonoscopy. He has a past medical history significant for: Hyperlipidemia: Will order fasting labs to evaluate. Patient has history of elevations in cholesterol and triglycerides. He states he has changed his diet significantly over the past 6 months and would like to see the new values before starting medication. Snoring: Patient has his partner in the room with states that he snores significantly throughout the night. He reports waking up feeling not refreshed in the morning. History of abdominal pain: Soft general surgery for this 7 months prior, obtain CT scan which came back unremarkable. Patient reports he has changed his diet since then has not had any episodes of abdominal pain. History of bilateral inguinal hernia: Patient reports that he has 2 bumps in the area of his groin. They are more pronounced when he coughs or bends over. States that cause very slight discomfort but have gotten worse over the past year. Will order ultrasound to evaluate. [facility] Medical History Chronic abdominal pain Biliary colic Surgical History No pertinent past surgical history Family History Mother MVA (motor vehicle accident) Father Gastric cancer Alcohol abuse Other Mental health disorder Social History Housing: Apartment Alcohol intake: former Year quit: 2022 Patient Tobacco Use Status: Current everyday Tobacco user Tobacco use type: Cigarette Cigarette Packs Per Day: 0.5 Cigarettes Per Day: 10 e-Cigarette/Vaping Use: Never Used Second Hand Smoke Exposure: Yes Substance Use Type: Marijuana service: No Current occupational status: employed Current occupation: [employer] Cognitive needs: No Hearing needs: No Vision needs: No Questionnaire Thrive Questionnaire Date Thrive assessed: 08/09/23 PALMIRA-7 AMB Questionnaire PALMIRA-7 Date PALMIRA - 7 assessed: 08/09/23 Source: Developed by Drs. Rajan Mcintyre, Kesha Conner, Joselo Medina and colleagues, with an educational brittany from [email or web address]. Review of Systems Const All systems reviewed & are unremarkable except as noted in HPI and below Physical exam (Primary Care) Vital Signs: Last Vital Signs Pulse 62 01/31/24 09:52 BP 110/66 01/31/24 09:52 Pulse Ox 98 01/31/24 09:52 Oxygen Delivery Method Room Air 01/31/24 09:52 BMI result Body Mass Index 24.1 Tobacco/Smoking Status: Tobacco use Status Tobacco use date assessed 01/31/24 01/31/24 09:51 Patient Tobacco Use Status Current everyday Tobacco 01/31/24 09:51 Tobacco use type Cigarette 01/31/24 09:51 e-Cigarette/Vaping Use Never Used 01/31/24 09:51 Are you ready to quit: Yes Tobacco cessation counseling provided: Yes Items discussed: Nicotine replacement Thrive Assessment: Date of Thrive Assessment Date Thrive assessed 08/09/23 01/31/24 09:51 Const Other: Appearance: Alert.? Oriented X3.? No acute distress.? Head: Normocephalic, atraumatic. Eyes: Pupils equal, round and reactive to light.? CVS: Normal heart rate and rhythm.? Pulses normal.? Respiratory: No respiratory distress.? Breath sounds normal.? Abdomen: Soft and nontender.? : +inguinal hernia. Neuro: Oriented X 3.? No motor deficit.? No sensory deficit. CN 2-12 intact Assessment and Plan Assessment & Plan (1) Snoring: Comment: Will refer to Sleep Medicine. Code(s): R06.83 - Snoring (2) Inguinal hernia bilateral, non-recurrent: Comment: Will order pelvic ultrasound to evaluate for bilateral inguinal hernia Code(s): K40.20 - Bilateral inguinal hernia, without obstruction or gangrene, not specified as recurrent Qualifiers: Obstruction and gangrene presence: without obstruction or gangrene Recurrence: not specified as recurrent Qualified Code(s): K40.20 - Bilateral inguinal hernia, without obstruction or gangrene, not specified as recurrent (3) Nicotine dependence: Comment: Patient interested in nicotine replacement therapy, will send nicotine transdermal patches. Patient has been educated the side effects of these medication Code(s): F17.200 - Nicotine dependence, unspecified, uncomplicated Qualifiers: Nicotine product type: cigarettes Substance use status: uncomplicated Qualified Code(s): F17.210 - Nicotine dependence, cigarettes, uncomplicated Plan: Draw labs. Plan Will follow-up with lab and ultrasound results Orders: Orders US pelvic limited Today K40.20 - Bilateral inguinal hernia, without obstruction or gangrene, not specified as recurrent Vitamin D 25-OH (D2 and D3) Today Z13.21 - Encounter for screening for nutritional disorder Vitamin B6 Today Z13.21 - Encounter for screening for nutritional disorder Vitamin B12 Today Z13.0 - Encounter for screening for diseases of the blood and blood-forming organs and certain disorders involving the immune mechanism Lipid Panel Today Z13.220 - Encounter for screening for lipoid disorders Complete Blood Count Auto Diff Today Z13.0 - Encounter for screening for diseases of the blood and blood-forming organs and certain disorders involving the immune mechanism UA CC w/rflx Micro + Cult Today Z13.89 - Encounter for screening for other disorder TSH reflex Free T4 Today Z13.29 - Encounter for screening for other suspected endocrine disorder Comprehensive Met. Panel Today Z91.89 - Other specified personal risk factors, not elsewhere classified Referrals Sleep Medicine Referral R06.83 - Snoring Medications: New nicotine 1 patch transdermal DAILY 28 ea 0RF Coding Level of Care Code Est Pt Level 3 (46549) Diagnoses Snoring R06.83 Bilateral inguinal hernia without obstruction or gangrene, recurrence not specified K40.20 Obstruction and gangrene presence: without obstruction or gangrene Recurrence: not specified as recurrent Cigarette nicotine dependence without complication F17.210 Nicotine product type: cigarettes Substance use status: uncomplicated Time Spent (min) 26
[2024-01-31 09:52] VITALS: BP 110/66; PULSE 62; O2SAT 98; BMI 24.1
== END 2024-01-31 10:29 | disposition home or self-care (01) ==
PROVIDERS: PCP Nurse Practitioner Family; Visit Provider Nurse Practitioner Primary Care
DX: R06.83 Snoring (principal); K40.20 Bilateral inguinal hernia, without obstruction or gangrene, not specified as recurrent; F17.210 Nicotine dependence, cigarettes, uncomplicated
CPT/HCPCS: 99213

== ENCOUNTER 2024-02-07 15:11 | Outpatient (REF) | payer OTHER, SELFPAY ==
--- NOTE | ~2024-02-07 | US_ITS ---
EXAMINATION: US OF BILATERAL INGUINAL REGIONS LIMITED/FOLLOW UP CLINICAL INFORMATION: Bilateral inguinal hernia without obstruction or gangrene. COMPARISON: CT abdomen and pelvis 06/13/2023. TECHNIQUE: Targeted ultrasound images were obtained by the upl[place] division director of the area of concern as indicated by the patient in the bilateral inguinal regions. Radiologist was not in attendance. Images were later provided for interpretation. FINDINGS: There is a hernia with transverse orifice diameter of 1.3 cm in the area indicated by the patient in the right inguinal region. There is a hernia with orifice diameter of 0.9 cm in the area indicated by the patient in the left inguinal region. It is possible that these small hernias contain bowel. US/US pelvic limited IMPRESSION: Bilateral inguinal hernias in the areas of concern indicated by the patient to the uplands division director. It is possible that these small hernias contain bowel. Surgical consultation and dedicated CT scan with attention to these regions is recommended for further evaluation.
== END 2024-02-07 15:12 | disposition home or self-care (01) ==
LOC: HO.HMGCX 15:11
PROVIDERS: PCP Nurse Practitioner Primary Care; Visit Provider Nurse Practitioner Primary Care
DX: K40.20 Bilateral inguinal hernia, without obstruction or gangrene, not specified as recurrent (principal)
CPT/HCPCS: 76857

== ENCOUNTER 2024-02-14 08:53 | Outpatient (REF) | payer OTHER, SELFPAY ==
[2024-02-14 13:08] LABS: MANUAL DIFF FLAG NO
[2024-02-14 13:13] LABS: Appearance Urine Clear; Basophils Absolute Auto 0.1 X10*3/uL (0.0-0.2); Basophils Percent Auto 0.9 % (0-2); Color Urine Yellow; Eosinophils Absolute Auto 0.3 X10*3/uL (0.0-0.4); Eosinophils Percent Auto 2.9 % (0-4); Glucose Urine UA Negative (Negative); Hematocrit 46.6 % (42.0-52.0); Hemoglobin 15.8 g/dl (14.0-18.0); Imm Gran Abs Auto 0.01 X10*3/uL (0.00-0.03); Imm Gran Pct Auto 0.1 % (0.0-0.4); Leukocyte Esterase Urine Negative (Negative); Lymphocytes Absolute Auto 2.4 X10*3/uL (1.2-4.9); Lymphocytes Percent Auto 27.8 % (20-40); Mean Corpuscular HGB Conc 33.9 g/dl (31.0-36.0); Mean Corpuscular Volume 91.4 fL (80.0-98.0); Mean Platelet Volume 10.6 fL (9.4-12.4); Monocytes Absolute Auto 0.5 X10*3/uL (0.1-1.2); Neutrophils Absolute Auto 5.3 x10*3/uL (2.0-8.3); Neutrophils Percent Auto 62.3 % (45-73); Nitrite Urine Negative (Negative); Platelet Count 310 X10*3/uL (160-400); Red Cell Distribution Width 13.6 % (11.0-16.0); Specific Gravity - Urine 1.025 (1.005-1.025); Urine Blood Negative (Negative); Urine Ketones Negative (Negative); Urine Protein Negative (Neg-Trace); White Blood Count 8.5 X10*3/uL (4.8-10.8)
[2024-02-14 13:53] LABS: PSA,Total (Free>4and<10) 0.72 ng/mL (0.00-4.00)
[2024-02-14 13:55] LABS: Alanine Aminotransferase 31 U/L (0-40); Albumin Level 4.6 g/dL (3.5-5.0); Alkaline Phosphatase 68 U/L (39-117); Anion Gap 10 (12-20); Aspartate Amino Transferase 23 U/L (5-37); Bilirubin Total 1.6 mg/dL (0.0-1.0); Blood Urea Nitrogen 17 mg/dL (9-16); Calcium 10.1 mg/dL (8.4-10.2); Carbon Dioxide 27 mmol/L (22-29); Chloride 106 mmol/L (96-108); Cholesterol 242 mg/dL (<200); Estimated Glomerular Filt Rate > 60; Glucose Random 98 mg/dL (60-115); HDL Cholesterol 52 mg/dL (>40); LDL Cholesterol Calculated 173 mg/dL (<100); Potassium 4.7 mmol/L (3.3-5.1); Sodium 138 mmol/L (135-145); Total Protein 7.5 g/dL (6.5-8.0); Triglycerides 87 mg/dL (<150)
[2024-02-14 13:56] LABS: TSH reflex Free T4 2.16 uIU/mL (0.32-4.0)
[2024-02-14 14:04] LABS: Vitamin B12 > 2000 pg/mL (200-900)
[2024-02-19 13:33] LABS: Vitamin D 25-OH, D2 <4 ng/mL; Vitamin D 25-OH, D3 21 ng/mL; Vitamin D 25-OH, Total 21 ng/mL (30-100)
[2024-02-20 14:33] LABS: Vitamin B6 20.8 ng/mL (2.1-21.7)
== END 2024-02-14 08:54 | disposition home or self-care (01) ==
LOC: HO.HMGCLDS 08:53
PROVIDERS: PCP Nurse Practitioner Primary Care; Visit Provider Nurse Practitioner Primary Care
DX: Z13.21 Encounter for screening for nutritional disorder (principal); Z13.0 Encounter for screening for diseases of the blood and blood-forming organs and certain disorders involving the immune mechanism; Z13.89 Encounter for screening for other disorder; Z13.29 Encounter for screening for other suspected endocrine disorder; Z13.220 Encounter for screening for lipoid disorders; Z91.89 Other specified personal risk factors, not elsewhere classified; Z12.5 Encounter for screening for malignant neoplasm of prostate
CPT/HCPCS: 36415; 80053; 80061; 81003; 82306; 82607; 84153; 84207; 84443; 85025

== ENCOUNTER 2024-07-07 12:02 | Outpatient (AMB) | payer OTHER, SELFPAY ==
[2024-07-07 12:22] VITALS: BP 120/72; PULSE 77; O2SAT 97; BMI 23.8
--- NOTE | 2024-07-07 12:22 | MHC.PC.OV ---
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 He reports three episodes of severe abdominal pain accompanied by vomiting, starting from June 13. The first episode lasted for 18 days, the second for 12 days, and the most recent episode from the to the of last month. During each episode, he is unable to eat and resorts to hot compress application to relieve pain. He reports no associated diarrhea yet experienced vomiting and pain severe enough to require emergency room visits, where morphine was administered. A computed tomography (CT) scan was performed, but no definitive diagnosis was made. The patient did not undergo an endoscopy. He has been advised against eating red meat and acidic foods. In addition, the patient reports a decrease in appetite and has lost weight during these episodes. He suspects a correlation between fatty food intake and the pain, possibly signifying an underlying issue with his gallbladder despite the absence of gallstones. The patient also noticed light-colored stools during these episodes. There is a past medical history of hyperlipidemia, with recent cholesterol levels being elevated compared to the previous year. [facility] Medical History History of alcoholism Inguinal hernia bilateral, non-recurrent Chronic abdominal pain Biliary colic Surgical History No pertinent past surgical history Family History Mother MVA (motor vehicle accident) Father Gastric cancer Alcohol abuse Other Mental health disorder Social History Housing: Apartment Alcohol intake: former Year quit: 2022 Patient Tobacco Use Status: Current everyday Tobacco user Tobacco use type: Cigarette Cigarette Packs Per Day: 0.5 Cigarettes Per Day: 5 e-Cigarette/Vaping Use: Never Used Second Hand Smoke Exposure: Yes Substance Use Type: Marijuana service: No Current occupational status: employed 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 Cognitive needs: No Hearing needs: No Vision needs: No Questionnaire Thrive Questionnaire Date Thrive assessed: 07/07/24 I am a: Patient What is your living situation today?: I have a place to live, but I am worried about losing it in the future Within the past 12 months, did the food you bought not last and you didn't have the money to get more?: Sometimes True Within the past 12 months, did you worry whether your food would run out before you got money to buy more?: Often true Do you have trouble paying for medicines?: I choose not to answer this question Do you have trouble getting transportation to medical appointments?: No Do you have trouble paying your heating and electricity bill?: No Do you have trouble taking care of your child, family member or friend?: No Do you have trouble with day-to-day activities such as bathing, preparing meals, shopping, managing finances, etc.?: No Are you currently unemployed and looking for a job?: No Are you interested in more education?: I choose not to answer this question Currently or been in a relationship where the following occur: No concerns reported THRIVE Score: 3 AUDIT C Alcohol Use Questionnaire (AUDIT-C) 1. How often do you have a drink containing alcohol?: Never (- Substance Use: The patient reports he has been sober from alcohol for two years.) 2. How many drinks containing alcohol do you have on a typical day when you are drinking?: 1 or 2 3. How often do you have six or more drinks on one occasion?: Never Total Score: 0 Score Reviewed/Action Taken: Yes Review of Systems Const Denies fatigue, Denies fever(s), Denies headache(s) and Denies weakness Eyes Denies change in vision, Denies eye discharge and Denies itchy eyes ENT Denies dizziness, Denies headache(s), Denies nasal congestion, Denies nasal discharge and Denies sore throat Card Denies chest pain, Denies lightheadedness, Denies palpitations and Denies dyspnea Resp Denies chest congestion, Denies cough, Denies dyspnea and Denies wheezing GI Reports as per HPI, Denies melena, Denies bloating, Denies hematochezia, Denies change in bowel habits and Denies heartburn Denies hematuria, Denies difficulty urinating, Denies dysuria, Denies urinary frequency and Denies urinary urgency Musc Reports no additional complaints Skin/Breast Denies breast pain, Denies breast mass, Denies lesions, Denies rash and Denies jaundice Neuro Denies dizziness, Denies headache(s) and Denies weakness Endo Denies fatigue, Denies polydipsia, Denies polyuria and Denies palpitations Jeronimo/Lymph Denies easy bruising Aller/Immun Denies itchy eyes, Denies seasonal rhinorrhea and Denies wheezing Physical exam (Primary Care) Vital Signs: Last Vital Signs Pulse 77 07/07/24 12:22 BP 120/72 07/07/24 12:22 Pulse Ox 97 07/07/24 12:22 BMI result Body Mass Index 23.8 Tobacco/Smoking Status: Tobacco use Status Tobacco use date assessed 01/31/24 07/07/24 12:28 Patient Tobacco Use Status Current everyday Tobacco 07/07/24 12:28 Tobacco use type Cigarette 07/07/24 12:28 e-Cigarette/Vaping Use Never Used 07/07/24 12:28 Thrive Assessment: Date of Thrive Assessment Date Thrive assessed 07/07/24 07/07/24 12:28 Currently or been in a relationship where the following occur: No concerns reported Const General: no acute distress and alert Orientation/consciousness: patient oriented x3 HENMT Ears: external ears normal General nose exam: Normal external nose present and No nasal discharge present Mouth: Normal oral and palatal mucosa present, oropharynx normal and moist mucous membranes Eyes General: appearance normal, both eyes and all related structures Conjunctivae: conjunctivae normal Sclerae: sclerae normal Pupils: Equal, round and reactive pupils present EOM: EOMs intact bilaterally Neck Neck: Yes full ROM, Yes no lymphadenopathy and Yes supple Resp Effort & Inspection: normal respiratory effort and able to speak in complete sentences Auscultation: clear to auscultation bilaterally Cardio Rate: regular rate Rhythm: regular rhythm Heart sounds: S1 normal heart sound present and S2 normal heart sound present GI Palpation (GI): Soft to palpation, Tenderness to palpation present (GI) in the epigastrum, no guarding and no masses Auscultation: normal bowel sounds Back/Spine/Pelvis Back: No back tenderness Skin General skin exam: no rashes or lesions noted Neuro General: patient oriented x3, gait normal, tone normal, moves all extremities, Normal light touch and pain sensation and no focal motor deficits Cranial nerves: Yes CN's II-XII intact bilaterally and Yes Equal, round and reactive pupils present Cognition (Neuro): normal cognition Extrem General: Yes full ROM, Yes no joint enlargement, Yes no clubbing, cyanosis or edema and Yes no calf tenderness Results Reviewed Results Reviewed: Laboratory Tests 02/14/24 09:41 Total Bilirubin 1.6 H Triglycerides 87 Cholesterol 242 H LDL Cholesterol, Calc 173 H HDL Cholesterol 52 Coding Level of Care Code Est Pt Level 4 (92702) Complex EM visit Add On G2211 Diagnoses Hypercholesteremia E78.00 Intermittent epigastric abdominal pain R10.13 Assessment & Plan Assessment & Plan (1) Hypercholesteremia: Code(s): E78.00 - Pure hypercholesterolemia, unspecified Category: Medical (2) Intermittent epigastric abdominal pain: Code(s): R10.13 - Epigastric pain Category: Medical Plan - Recurrent Abdominal Pain: Referral to a Solid Waste Analyst for further evaluation, including considering initiating tests for suspected pancreatitis. - Hyperlipidemia: Recommend dietary adjustments to lower cholesterol levels by reducing fatty foods and increasing physical activity. - Ordered a comprehensive metabolic panel, amylase, lipase, and fasting lipids panel. Schedule a complete physical examination for preventive care and ongoing management. Patient was informed and verbally consented to the use of an ambient scribe for clinic note documentation during this visit. Orders: Orders Comprehensive [place]. Panel Fast 07/07/24 E78.00 - Pure hypercholesterolemia, unspecified, F17.210 - Nicotine dependence, cigarettes, uncomplicated, R10.13 - Epigastric pain Lipid Panel 07/07/24 E78.00 - Pure hypercholesterolemia, unspecified, F17.210 - Nicotine dependence, cigarettes, uncomplicated, R10.13 - Epigastric pain Lipase 07/07/24 E78.00 - Pure hypercholesterolemia, unspecified, F17.210 - Nicotine dependence, cigarettes, uncomplicated, R10.13 - Epigastric pain Amylase 07/07/24 E78.00 - Pure hypercholesterolemia, unspecified, F17.210 - Nicotine dependence, cigarettes, uncomplicated, R10.13 - Epigastric pain Referrals Gastroenterology Referral K80.50 - Calculus of bile duct without cholangitis or cholecystitis without obstruction, R10.13 - Epigastric pain
== END 2024-07-07 13:15 | disposition home or self-care (01) ==
LOC: HO.HMCC 12:02
PROVIDERS: PCP Internal Medicine; Visit Provider Internal Medicine
DX: E78.00 Pure hypercholesterolemia, unspecified (principal); R10.13 Epigastric pain

== ENCOUNTER → 2024-07-07 12:02 | Outpatient (BNVA) | payer OTHER, SELFPAY | PROVIDERS: PCP Internal Medicine; Visit Provider Internal Medicine | DX: R10.13 Epigastric pain (principal); E78.00 Pure hypercholesterolemia, unspecified | CPT/HCPCS: 99212 ==

== ENCOUNTER → 2024-08-20 14:40 | Outpatient (AMB) | payer OTHER, SELFPAY ==
[2024-08-20 14:57] VITALS: BP 94/66; PULSE 81; O2SAT 96; BMI 24.1
--- NOTE | 2024-08-20 14:57 | MHC.PC.OV ---
Vital Signs 08/20/24 14:57 Height 5 ft 7 in Weight 154 lb BMI 24.1 BP 94/66 Blood Pressure Location Rt brachial Position Sitting Pulse 81 Pulse Source Pulse Oximeter Pulse Oximetry (%) 96 Oxygen Delivery Method Room Air Intake Visit Reasons: PE Intake Note: Pt is here today for his PE/ Pt c/o Lt shoulder pain no injury noted due to repetitive movement Allergies No Known Allergies Allergy (Verified 08/24/24 02:55) Medication List - Last Reconciled 08/20/24 by Cherelle Booker MD cholecalciferol (vitamin D3) PO Tobacco use date assessed: 08/20/24 Dental Screening Dental Screen Date: 08/20/24 HPI PE HPI Details 44-year-old male here today for physical exam. He is due for an initial colonoscopy screening, has an appointment already scheduled with Dr. Steinberg on 09/18/2024. He continues to smoke but has cut back, now to down to approximately 10 cigarettes per day, but not completely quit yet. He used to drink heavily but has been sober now for the last 2 years. Complains of pain and stiffness in his left shoulder, worse with flexion and extension of arm. Patient states that he uses his left arm frequently at work, does repetitive motion. Has been taking [id number] NSAIDs and resting joint, which affords only temporary relief. He has small bilateral inguinal hernias which has not been causing any problems. He also has been having a disturbed sleep, frequently snores , now has an appointment for evaluation at the sleep clinic scheduled for 08/28/2024 [facility] Medical History (Updated 08/24/24 @ 03:02 by Cherelle Booker MD) Left shoulder strain History of alcoholism Inguinal hernia bilateral, non-recurrent Chronic abdominal pain Biliary colic Surgical History No pertinent past surgical history Family History Mother MVA (motor vehicle accident) Father Gastric cancer Alcohol abuse Other Mental health disorder Social History Housing: Apartment Alcohol intake: former Year quit: 2022 Patient Tobacco Use Status: Current everyday Tobacco user Tobacco use type: Cigarette Cigarette Packs Per Day: 0.5 Cigarettes Per Day: 5 e-Cigarette/Vaping Use: Never Used Second Hand Smoke Exposure: Yes Substance Use Type: Marijuana service: No Current occupational status: employed Current occupation: [employer] Cognitive needs: No Hearing needs: No Vision needs: No Questionnaire PHQ-9 Over the last 2 weeks, how often have you been bothered by any of the following problems? 1. Little interest or pleasure in doing things: not at all 2. Feeling down, depressed, or hopeless: not at all 3. Trouble falling or staying asleep, or sleeping too much: nearly every day 4. Feeling tired or having little energy: more than half the days 5. Poor appetite or overeating: several days 6. Feeling bad about yourself - or that you are a failure or have let yourself or your family down: not at all 7. Trouble concentrating on things, such as reading the newspaper or watching television: several days 8. Moving or speaking so slowly that other people could have noticed. Or the opposite - being so fidgety or restless that you have been moving around a lot more than usual: not at all 9. Thoughts that you would be better off or of hurting yourself in some way: not at all Total score: 7 Depression Screening Interpretation: Negative Depression Screening Done: Yes 29071 - PHQ-9 Billing: Yes Source: Developed by Drs. Rajan Mcintyre, Kesha Conner, Joselo Medina and colleagues, with an educational brittany from [employer]. Thrive Questionnaire Date Thrive assessed: 08/20/24 I am a: Patient What is your living situation today?: I have a steady place to live Within the past 12 months, did the food you bought not last and you didn't have the money to get more?: Often true Within the past 12 months, did you worry whether your food would run out before you got money to buy more?: Often true Do you have trouble paying for medicines?: No Do you have trouble getting transportation to medical appointments?: No Do you have trouble paying your heating and electricity bill?: I choose not to answer this question Do you have trouble taking care of your child, family member or friend?: No Do you have trouble with day-to-day activities such as bathing, preparing meals, shopping, managing finances, etc.?: No Are you currently unemployed and looking for a job?: No Are you interested in more education?: No Please select the resources that you would like help with: Food Currently or been in a relationship where the following occur: No concerns reported THRIVE Score: 2 AUDIT C Alcohol Use Questionnaire (AUDIT-C) 1. How often do you have a drink containing alcohol?: Never Total Score: 0 PALMIRA-7 AMB Questionnaire PALMIRA-7 Date PALMIRA - 7 assessed: 08/20/24 Feeling nervous, anxious, or on edge: 1 = Several days Not being able to stop or control worryin = Not at all Worrying too much about different things: 2 = More than half the days Trouble relaxin = Several days Being so restless that it is hard to sit still: 0 = Not at all Becoming easily annoyed or irritable: 2 = More than half the days Feeling afraid as if something awful might happen: 0 = Not at all Total PALMIRA-7 score (0-4 normal; 5-9 mild; 10-14 moderate; 15-21 severe): 6 Source: Developed by Drs. Rajan Mcintyre, Kesha Conner, Joselo Medina and colleagues, with an educational brittany from [employer]. PALMIRA-7 Assessment Billing PALMIRA-7 Assessment Tool: PALMIRA-7 Assessment 68627 Review of Systems Const Denies fever(s), Denies headache(s) and Denies weakness Eyes Denies change in vision ENT Denies dizziness, Denies headache(s), Denies nasal congestion, Denies nasal discharge and Denies sore throat Card Denies chest pain, Denies lightheadedness, Denies palpitations and Denies dyspnea Resp Denies chest congestion, Denies cough, Denies dyspnea and Denies wheezing GI Denies melena, Denies bloating, Denies hematochezia, Denies change in bowel habits and Denies heartburn Denies hematuria, Denies difficulty urinating, Denies dysuria, Denies urinary frequency and Denies urinary urgency Musc Reports as per HPI Skin/Breast Denies lesions and Denies rash Neuro Denies dizziness, Denies headache(s) and Denies weakness Psych Reports no additional complaints Endo Denies polydipsia, Denies polyuria and Denies palpitations Jeronimo/Lymph Denies easy bruising Aller/Immun Denies seasonal rhinorrhea and Denies wheezing Physical exam (Primary Care) Vital Signs: Last Vital Signs Pulse 81 08/20/24 14:57 BP 94/66 08/20/24 14:57 Pulse Ox 96 08/20/24 14:57 Oxygen Delivery Method Room Air 08/20/24 14:57 BMI result Body Mass Index 24.1 Tobacco/Smoking Status: Tobacco use Status Tobacco use date assessed 08/20/24 08/20/24 14:59 Patient Tobacco Use Status Current everyday Tobacco 08/20/24 14:59 Tobacco use type Cigarette 08/20/24 14:59 e-Cigarette/Vaping Use Never Used 08/20/24 14:59 PHQ-9: PHQ-9 Score PHQ-9: Total score 14 08/20/24 15:48 Depression Screening Interpretation: Negative Thrive Assessment: Date of Thrive Assessment Date Thrive assessed 08/20/24 08/20/24 15:17 Currently or been in a relationship where the following occur: No concerns reported Const General: no acute distress and alert Orientation/consciousness: patient oriented x3 HENMT Ears: external ears normal General nose exam: Normal external nose present and No nasal discharge present Mouth: Normal oral and palatal mucosa present, oropharynx normal and moist mucous membranes Eyes General: appearance normal, both eyes and all related structures Conjunctivae: conjunctivae normal Sclerae: sclerae normal Pupils: Equal, round and reactive pupils present EOM: EOMs intact bilaterally Neck Neck: Yes full ROM, Yes no lymphadenopathy and Yes supple Resp Effort & Inspection: normal respiratory effort and able to speak in complete sentences Auscultation: clear to auscultation bilaterally Cardio Rate: regular rate Rhythm: regular rhythm Heart sounds: S1 normal heart sound present and S2 normal heart sound present GI Palpation (GI): Soft to palpation, no guarding and no masses Auscultation: normal bowel sounds General: Yes no CVA tenderness Male General Exam: Yes normal external exam Back/Spine/Pelvis Back: no CVA tenderness and No back tenderness Skin General skin exam: no rashes or lesions noted Neuro General: patient oriented x3, gait normal, tone normal, moves all extremities, Normal light touch and pain sensation and no focal motor deficits Cranial nerves: Yes CN's II-XII intact bilaterally and Yes Equal, round and reactive pupils present Cognition (Neuro): normal cognition Extrem Other: prominent left AC joint, with slight decrease in range of motion in left shoulder joint especially on abduction and flexion due to pain General: Yes no joint enlargement, Yes no clubbing, cyanosis or edema and Yes no calf tenderness Psych Appearance: grossly normal and well kempt Mental Status: mental status grossly normal Speech and movement: Normal speech and movement present Affect: normal affect Coding Level of Care Code Est Pt Prev Care 40-64y(57462) Diagnoses Annual visit for general adult medical examination with abnormal findings Z00.01 Strain of left shoulder, initial encounter S46.912A Encounter type: initial encounter Cigarette nicotine dependence without complication F17.210 Nicotine product type: cigarettes Substance use status: uncomplicated Hypercholesteremia E78.00 Bilateral inguinal hernia without obstruction or gangrene, recurrence not specified K40.20 Obstruction and gangrene presence: without obstruction or gangrene Recurrence: not specified as recurrent Snoring R06.83 Additional Codes PHQ-9 - 71075 - PHQ-9 Billing: Yes ([id number]) PALMIRA-7 Assessment Billing - PALMIRA-7 Assessment Tool: PALMIRA-7 Assessment 86797 ([id number]) Assessment & Plan Assessment & Plan (1) Annual visit for general adult medical examination with abnormal findings: Code(s): Z00.01 - Encounter for general adult medical examination with abnormal findings Category: Medical Plan: Patient reminded to get his fasting labs done, already ordered. Has an appointment already scheduled for his initial screening colonoscopy with Dr. Steinberg, reinforced importance of following a healthy diet and getting regular exercise. Declined recommended vaccines (2) Left shoulder strain: Code(s): S46.912A - Strain of unspecified muscle, fascia and tendon at shoulder and upper arm level, left arm, initial encounter Category: Medical Qualifiers: Encounter type: initial encounter Qualified Code(s): S46.912A - Strain of unspecified muscle, fascia and tendon at shoulder and upper arm level, left arm, initial encounter Plan: Physical therapy consult obtained (3) Nicotine dependence: Code(s): F17.200 - Nicotine dependence, unspecified, uncomplicated Category: Medical Qualifiers: Nicotine product type: cigarettes Substance use status: uncomplicated Qualified Code(s): F17.210 - Nicotine dependence, cigarettes, uncomplicated Plan: Patient strongly advised to stop smoking, as smoking damages blood vessels, degenerative of joints and spine, damage to lungs and heart., predisposes to developing certain cancers like lung, breast, bladder, colon. Recommended to try decreasing cigarette use by 1-2 cigarettes a day. Advised to monitor what triggers are for smoking so that this can be discussed on the next office visit. We can discuss different options to quit smoking when ready. (4) Hypercholesteremia: Code(s): E78.00 - Pure hypercholesterolemia, unspecified Category: Medical Plan: Check fasting lipids reinforced importance of following a healthy diet and getting regular exercise (5) Inguinal hernia bilateral, non-recurrent: Comment: Will order pelvic ultrasound to evaluate for bilateral inguinal hernia Code(s): K40.20 - Bilateral inguinal hernia, without obstruction or gangrene, not specified as recurrent Category: Medical Qualifiers: Obstruction and gangrene presence: without obstruction or gangrene Recurrence: not specified as recurrent Qualified Code(s): K40.20 - Bilateral inguinal hernia, without obstruction or gangrene, not specified as recurrent Plan: Patient has already been evaluated by surgery, declined further treatment at present time as hernia is not bothering him (6) Snoring: Code(s): R06.83 - Snoring Category: Medical Plan: has appt with Sleep clinic on 08/28/24 Orders: Orders PT Evaluation and Treatment 08/20/24 S46.912A - Strain of unspecified muscle, fascia and tendon at shoulder and upper arm level, left arm, initial encounter
== END ==
PROVIDERS: PCP Internal Medicine; Visit Provider Internal Medicine
DX: Z00.01 Encounter for general adult medical examination with abnormal findings (principal); S46.912A Strain of unspecified muscle, fascia and tendon at shoulder and upper arm level, left arm, initial encounter; F17.210 Nicotine dependence, cigarettes, uncomplicated; E78.00 Pure hypercholesterolemia, unspecified; K40.20 Bilateral inguinal hernia, without obstruction or gangrene, not specified as recurrent; R06.83 Snoring

== ENCOUNTER → 2024-08-20 14:40 | Outpatient (BNVA) | payer OTHER, SELFPAY | PROVIDERS: PCP Internal Medicine; Visit Provider Internal Medicine | DX: Z00.01 Encounter for general adult medical examination with abnormal findings (principal); S46.912A Strain of unspecified muscle, fascia and tendon at shoulder and upper arm level, left arm, initial encounter; F17.210 Nicotine dependence, cigarettes, uncomplicated; E78.00 Pure hypercholesterolemia, unspecified; K40.20 Bilateral inguinal hernia, without obstruction or gangrene, not specified as recurrent; R06.83 Snoring; Z71.6 Tobacco abuse counseling | CPT/HCPCS: 96127; 99396 ==

== ENCOUNTER → 2024-08-28 13:39 | Outpatient (BNVA) | payer OTHER, SELFPAY | PROVIDERS: PCP Nurse Practitioner Primary Care; Visit Provider Nurse Practitioner Family | DX: G47.9 Sleep disorder, unspecified (principal); R06.83 Snoring; G47.50 Parasomnia, unspecified; G47.10 Hypersomnia, unspecified; G25.81 Restless legs syndrome; E55.9 Vitamin D deficiency, unspecified; M54.6 Pain in thoracic spine | CPT/HCPCS: 99202 ==

== ENCOUNTER 2024-10-30 07:06 | Outpatient (REF) | payer OTHER, SELFPAY ==
[2024-10-30 10:18] LABS: MANUAL DIFF FLAG NO
[2024-10-30 10:27] LABS: Basophils Absolute Auto 0.1 X10*3/uL (0.0-0.2); Eosinophils Absolute Auto 0.3 X10*3/uL (0.0-0.4); Eosinophils Percent Auto 4.1 % (0-4); Hematocrit 45.7 % (42.0-52.0); Hemoglobin 15.3 g/dl (14.0-18.0); Imm Gran Abs Auto 0.03 X10*3/uL (0.00-0.03); Imm Gran Pct Auto 0.4 % (0.0-0.4); Lymphocytes Absolute Auto 2.2 X10*3/uL (1.2-4.9); Lymphocytes Percent Auto 26.3 % (20-40); Mean Corpuscular HGB Conc 33.5 g/dl (31.0-36.0); Mean Corpuscular Hemoglobin 30.7 pg (27.0-33.0); Mean Corpuscular Volume 91.6 fL (80.0-98.0); Mean Platelet Volume 10.3 fL (9.4-12.4); Monocytes Absolute Auto 0.5 X10*3/uL (0.1-1.2); Monocytes Percent Auto 6.1 % (2-11); Neutrophils Absolute Auto 5.2 x10*3/uL (2.0-8.3); Neutrophils Percent Auto 62.1 % (45-73); Platelet Count 329 X10*3/uL (160-400); Red Blood Count 4.99 X10*6/uL (4.60-5.80); Red Cell Distribution Width 13.7 % (11.0-16.0); White Blood Count 8.3 X10*3/uL (4.8-10.8)
[2024-10-30 10:41] LABS: Estimated Average Glucose 100 mg/dL; Hemoglobin A1c % 5.1 % (<6.0)
[2024-10-30 11:10] LABS: Ferritin 106 ng/mL (20-250)
[2024-10-30 11:19] LABS: Vitamin B12 1209 pg/mL (200-900)
[2024-10-30 11:34] LABS: Alanine Aminotransferase 36 U/L (0-40); Albumin Level 4.3 g/dL (3.5-5.0); Amylase 118 U/L (28-100); Anion Gap 10 (12-20); Aspartate Amino Transferase 31 U/L (5-37); Bilirubin Total 1.2 mg/dL (0.0-1.0); Blood Urea Nitrogen 20 mg/dL (9-16); Calcium 9.6 mg/dL (8.4-10.2); Carbon Dioxide 27 mmol/L (22-29); Chloride 108 mmol/L (96-108); Cholesterol 225 mg/dL (<200); Estimated Glomerular Filt Rate > 60; Glucose Fasting 97 mg/dL (60-99); Glucose Random 96 mg/dL (60-115); HDL Cholesterol 59 mg/dL (>40); Iron 148 mcg/dL (45-160); LDL Cholesterol Calculated 150 mg/dL (<100); Lipase 21 U/L (8-78); Percent Iron Saturation 52 % (15-50); Potassium 4.9 mmol/L (3.3-5.1); Sodium 140 mmol/L (135-145); Total Iron Binding Capacity 285 mcg/dL (228-428); Triglycerides 83 mg/dL (<150); Unsaturated Iron Binding 137 ug/dL
[2024-10-30 11:58] LABS: Alkaline Phosphatase 64 U/L (39-117)
[2024-11-03 05:44] LABS: Copper, serum 81 mcg/dL (70-175)
[2024-11-03 06:13] LABS: Zinc 77 mcg/dL (60-130)
[2024-11-05 13:23] LABS: Vitamin D 25-OH, D2 <4 ng/mL; Vitamin D 25-OH, D3 19 ng/mL; Vitamin D 25-OH, Total 19 ng/mL (30-100)
[2024-11-18 15:44] LABS: Vitamin B1 10 nmol/L (8-30)
== END 2024-10-30 07:07 | disposition home or self-care (01) ==
LOC: HO.HMGCLDS 07:06
PROVIDERS: PCP Internal Medicine; Referring Provider Nurse Practitioner Family; Visit Provider Internal Medicine
DX: F17.210 Nicotine dependence, cigarettes, uncomplicated (principal); R10.13 Epigastric pain; E78.00 Pure hypercholesterolemia, unspecified; G47.10 Hypersomnia, unspecified; E55.9 Vitamin D deficiency, unspecified; G25.81 Restless legs syndrome; F10.21 Alcohol dependence, in remission
CPT/HCPCS: 36415; 80053; 80061; 82150; 82306; 82525; 82607; 82728; 82746; 83036; 83540; 83690; 84425; 84630; 85025